=== PATIENT | female | born 1960 | race Caucasian/White ===

== ENCOUNTER → 2017-10-29 | Outpatient (CLI) | payer BC ==
--- NOTE | 2017-10-29 11:44 | RADIOLOGY IMAGING REPORT ---
FACILITY: PATIENT NAME: GLORIA DALY : [id number] MR: [id number] V: [id number] EXAM DATE: ORDERING PHYSICIAN: EMMA STEVENSON TECHNOLOGIST: Melissa Hardin PROCEDURE:BILATERAL DIGITAL SCREENING MAMMOGRAM WITH CAD ASSISTED INTERPRETATION & 3D TOMOSYNTHESIS COMPARISON:Prior mammograms 03/20/16, 03/03/14, 02/14/11. INDICATIONS:SCREENING FINDINGS: A small to moderate amount of fibroglandular tissue is seen throughout the breasts. The parenchymal pattern has remained stable allowing for difference in mammographic technique & patient positioning. There is no evidence of malignant appearing mass, malignant appearing calcifications or other secondary sign of malignancy in either breast. DIAGNOSTIC CATEGORY 1--NEGATIVE. RECOMMENDATIONS: ROUTINE MAMMOGRAM AND CLINICAL EVALUATION. IMPRESSION: BIRADS 1: Negative. No significant abnormality is seen. Dictated by: Eli Ramirez M.D. on 10/29/2017 at 11:00 Transcribed by: MONCHO on 10/29/2017 at 11:18 Approved by: Eli Ramirez M.D. on 10/29/2017 at 11:42 [facility]
== END ==
LOC: MAMO 01:22
PROVIDERS: ATTEND Nurse Practitioner Psychiatric/Mental Health
DX: Z12.31 Encounter for screening mammogram for malignant neoplasm of breast (principal)
CPT/HCPCS: 77063; 77067